=== PATIENT | female | born 1935 | race Caucasian/White ===

== ENCOUNTER 2018-03-21 02:05 | Observation (INO) | payer OTHER ==
[~2018-03-21] VITALS: Ht 154.9 cm; Wt 71.0 kg
[~2018-03-21 02:05] MED LIST: ASPIR 8181 M1 PO; CIPROFLOXACIN500 M1 PO; FISH OIL 1,0001 EA10 PO; LIPITOR40 MG PO; LISINOPRIL-HCT1 EAC3 PO; METOPROLOL TART25 MG PO; PLAVIX75 MG PO; PRINIVIL5 MG PO
[2018-03-21 02:57] LABS: HEMOGLOBIN 11.1 G/DL (11.9-15.5); MCH 32.7 PG (29.0-34.0); MCHC 34.7 G/DL (30.0-36.0); MCV 94.4 FL (83-99); PLATELET COUNT 209 K/uL (156-360); RBC DIS.WIDTH-CV 13.6 % (11.8-14.6); RBC DIS.WIDTH-SD 46.5 % (39-53); RED BLOOD COUNT 3.39 M/uL (3.80-5.20)
[2018-03-21 03:02] LABS: INTER. NORMALIZED RATIO 1.1
[2018-03-21 03:04] LABS: PTT 29.4 SEC (25-37)
[2018-03-21 03:08] LABS: ALBUMIN 3.9 g/dL (3.2-4.8); CHLORIDE 108 mEq/L (99-109); SODIUM 139 mEq/L (136-147)
[2018-03-21 03:10] LABS: GLUCOSE 119 mg/dL (70-99)
[2018-03-21 03:11] LABS: TOTAL PROTEIN 6.8 g/dL (6.4-8.3)
[2018-03-21 03:12] LABS: TOTAL BILIRUBIN 0.5 mg/dL (0.0-1.0)
[2018-03-21 03:14] LABS: ALKALINE PHOSPHATASE 73 IU/L (3-129); CREATININE 0.9 mg/dL (0.6-1.3); GFR ESTIMATE (CALCULATED) > 59 mL/min/
[2018-03-21 03:15] LABS: UREA NITROGEN (BUN) 24 mg/dL (9-23)
[2018-03-21 03:16] LABS: AST (GOT) 11 IU/L (2-34)
[2018-03-21 03:17] LABS: ALT (GPT) 14 IU/L (3-49); LIPASE 11 U/L (1.0-51.0)
[2018-03-21 03:18] LABS: TROP-I INTERPRETATION NEGATIVE; TROPONIN-I 0.02 ng/mL (0.0-0.30)
[2018-03-21] MEDS ORDERED: LOPRESSOR25 MG PO (04:54)
[2018-03-21] MEDS ORDERED: LISINOPRIL10 MG PO (04:54)
[2018-03-21 06:00] VITALS: BP 172/77
[2018-03-21 07:25] VITALS: BP 166/76
[2018-03-21 09:56] LABS: HDL CHOLESTEROL 45 MG/DL (Desirable>=50); LDL CHOLESTEROL 73 mg/dL (Desirable<100); NON-HDL CHOLESTEROL 127 mg/dL (Desirable<160); TOTAL CHOLESTEROL 172 mg/dL (Desirable<200); TRIGLYCERIDES 271 MG/DL (Normal: <150)
[2018-03-21 10:35] LABS: TROP-I INTERPRETATION NEGATIVE; TROPONIN-I 0.26 ng/mL (0.0-0.30)
[2018-03-21 11:59] VITALS: BP 160/71
[2018-03-21] MEDS ORDERED: KETOCONAZOLE60 GM TP (12:35)
[2018-03-21] MEDS ORDERED: ELOCON 0.1% CRE15 GM TP (12:35)
[2018-03-21] MEDS ORDERED: APPLE CIDER VI1 EAC1 PO (12:36)
[2018-03-21 15:23] LABS: TROP-I INTERPRETATION INDETERMINATE; TROPONIN-I 0.31 ng/mL (0.0-0.30)
[2018-03-21 15:36] VITALS: BP 161/73
[2018-03-21 19:30] VITALS: BP 191/78
[2018-03-21 21:24] LABS: TROP-I INTERPRETATION NEGATIVE; TROPONIN-I 0.27 ng/mL (0.0-0.30)
[2018-03-21 23:23] VITALS: BP 143/67
[2018-03-22 03:41] VITALS: BP 141/65
[2018-03-22 03:56] LABS: BASOPHIL (%) 0.4 % (0-1); EOSINOPHIL (%) 2.2 % (0-5); EOSINOPHIL COUNT 0.1 K/uL (0-0.3); HEMOGLOBIN 11.4 G/DL (11.9-15.5); IMMATURE GRANULOCYTE (%) 0.4 % (0.0-0.7); LYMPHOCYTE (%) 32.5 % (15-42); LYMPHOCYTE COUNT 1.7 K/uL (1.0-2.8); MCH 32.9 PG (29.0-34.0); MCHC 34.5 G/DL (30.0-36.0); MCV 95.1 FL (83-99); MONOCYTE (%) 5.4 % (3-12); MONOCYTE COUNT 0.3 K/uL (0-0.8); NEUTROPHIL (%) 59.1 % (45-76); NEUTROPHIL COUNT 3.2 K/uL (1.8-6.4); PLATELET COUNT 227 K/uL (156-360); RBC DIS.WIDTH-CV 13.6 % (11.8-14.6); RBC DIS.WIDTH-SD 47.1 % (39-53); RED BLOOD COUNT 3.47 M/uL (3.80-5.20); WHITE BLOOD COUNT 5.4 K/uL (4.1-10.2)
[2018-03-22 04:05] LABS: CHLORIDE 106 mEq/L (99-109); POTASSIUM 4.4 mEq/L (3.7-5.4); SODIUM 139 mEq/L (136-147)
[2018-03-22 04:06] LABS: GLUCOSE 108 mg/dL (70-99)
[2018-03-22 04:10] LABS: CREATININE 1.1 mg/dL (0.6-1.3); GFR ESTIMATE (CALCULATED) 50 mL/min/
[2018-03-22 04:11] LABS: UREA NITROGEN (BUN) 28 mg/dL (9-23)
[2018-03-22 04:17] LABS: TROP-I INTERPRETATION NEGATIVE; TROPONIN-I 0.22 ng/mL (0.0-0.30)
[2018-03-22 07:30] VITALS: BP 132/64
[2018-03-22 09:38] LABS: TROP-I INTERPRETATION NEGATIVE; TROPONIN-I 0.18 ng/mL (0.0-0.30)
[2018-03-22] MEDS ORDERED: LISINOPRIL40 MG PO (11:18)
== END 2018-03-22 11:39 | disposition home or self-care (01) ==
LOC: EME 02:05 → EDOF 04:22 → 4SOUTH 04:22 → ENRESERV 04:24 → 4SOUTH 05:50
PROVIDERS: Emergency Medicine; Internal Medicine; Internal Medicine Cardiovascular Disease; Physician Assistant Medical
DX: I16.0 Hypertensive urgency (principal); R07.9 Chest pain, unspecified; I11.0 Hypertensive heart disease with heart failure; I50.22 Chronic systolic (congestive) heart failure; I25.10 Atherosclerotic heart disease of native coronary artery without angina pectoris; I25.2 Old myocardial infarction; Z95.1 Presence of aortocoronary bypass graft; I25.5 Ischemic cardiomyopathy; R94.31 Abnormal electrocardiogram [ECG] [EKG]; E78.5 Hyperlipidemia, unspecified; Z87.442 Personal history of urinary calculi; Z79.82 Long term (current) use of aspirin; Z90.49 Acquired absence of other specified parts of digestive tract
CPT/HCPCS: 71046; 76536; 80048; 80053; 80061; 83690; 84484; 85025; 85027; 85610; 85730; 93005; 99281; 99285; G0378; J1644